=== PATIENT | female | born 1985 | race Asian ===

== ENCOUNTER 2018-01-11 23:44 | Observation (INO) | payer BC, OTHER ==
[~2018-01-11] VITALS: Ht 157.5 cm; Wt 58.0 kg
[2018-01-11] MEDS ORDERED: ALUMINUM/MAGNESIUM SUSP 30 ML UDC PO STA (23:54)
[2018-01-11] MEDS ORDERED: SODIUM CHLORIDE 0.9% 1000ML 1,000 ML IV STA (23:54)
[2018-01-11] MEDS ORDERED: LIDOCAINE HCL 2% VISC SOLN 20 ML UDC PO STA (23:54)
[2018-01-11] MEDS ORDERED: ONDANSETRON INJ 2 MG/ML 2 ML VIAL IV STA (23:54)
[2018-01-12] VITALS (9 sets, daily range): BP systolic 95–110; BP diastolic 60–74; PULSE 71–107; TEMP 36.2–37.2; O2SAT 97–100; Ht 157.5 cm; Wt 58.0 kg
[2018-01-12 00:21] LABS: BASO % 0.1 %; BASO ABS # 0.01 K/uL (0-0.2); EOS % 0.9 %; EOS ABS # 0.11 K/uL (0-0.5); HEMATOCRIT 40.1 % (37-47); HEMOGLOBIN 14.1 g/dL (12.0-16.0); IG# 0.03 K/uL (0.00-0.02); LYMPH % 22.8 %; LYMPH ABS # 2.77 K/uL (1.2-3.4); MEAN CELL VOLUME 90.3 fL (80-100); MEAN CORPUSCULAR HEMOGLOBIN 31.8 pg (25-34); MEAN CORPUSCULAR HGB CONC 35.2 g/dl (32-36); MEAN PLATELET VOLUME 9.1 fL (7.4-10.4); MONO % 6.2 %; MONO ABS # 0.75 K/uL (0.11-0.59); NEUT % 69.8 %; NEUT ABS # 8.46 K/uL (1.4-6.5); PLATELET COUNT 289 K/uL (130-400); RED CELL DISTRIBUTION WIDTH CV 12.3 % (11.5-14.5); RED CELL DISTRIBUTION WIDTH SD 40.2 fL (36.4-46.3); WHITE BLOOD COUNT 12.13 K/uL (4.8-10.8)
[2018-01-12] MEDS ORDERED: KETOROLAC TROMETHAMINE 30 MG/ML VIAL IV STA (00:30)
[2018-01-12 00:45] LABS: ALBUMIN 4.2 gm/dl (3.4-5.0); ALKALINE PHOSPHATASE 74 U/L (45-117); ALT/SGPT 25 U/L (12-78); AST/SGOT 21 U/L (15-37); BLOOD UREA NITROGEN 15 mg/dl (7-18); CARBON DIOXIDE 28 mmol/L (21-32); GLUCOSE 98 mg/dl (70-99); LIPASE 203 U/L (73-393); POTASSIUM 3.5 mmol/L (3.5-5.1); SODIUM 139 mmol/L (136-145); TOTAL PROTEIN 8.6 gm/dl (6.4-8.2)
[2018-01-12] MEDS ORDERED: MoRPHine SULFATE 4 MG/ML 1 ML CARP\\VIAL ONE (01:21)
[2018-01-12] MEDS ORDERED: MoRPHine SULFATE 4 MG/ML 1 ML CARP\\VIAL IV STA ×2 (01:23→04:22)
[2018-01-12] MEDS ORDERED: OPTIRAY 320 IV PRN (02:45)
[2018-01-12] MEDS ORDERED: CEFOXITIN SOD 1 GM VIAL IV STA (04:18)
[2018-01-12] MEDS ORDERED: SODIUM CHLORIDE 0.9% 1000ML 1,000 ML IV STA (04:22)
--- NOTE | 2018-01-12 04:37 | EMERGENCY ROOM VISIT NOTE ---
History First contact with patient: 23:51 Chief Complaint: ABDOMINAL PAIN Stated Complaint: UPPER ABDOMINAL PAIN Nursing Triage Summary: severe abdominal pain upper abdomen starting 1900, no diarrhea or vomiting History of Present Illness The patient is a 32 year old female who presents to the Emergency Room with complaints of mid epigastric pain throughout the day is gotten progressively worse described as discomfort, ranging in severity 8 out of 10. Nothing makes it better or worse. No correlation with eating. Patient states she has had H. pylori infection before but this feels different. She was retested again with family care doctor and was negative. No recent EGD. She still has her gallbladder. Patient denies chest pain, dyspnea, vomiting, diarrhea, back pain , urinary symptoms. Review of Systems An 10 system review of systems was completed with positives and pertinent negatives listed in the HPI. Past Medical/Surgical History Medical Problems: (1) Bilateral tubal ligation (2) Vaginal delivery Social History Smoking Status: Never Smoker Smokeless Tobacco Use: No Alcohol Use: none Drug Use: none Marital Status: Current/Historical Medications No Active Prescriptions or Reported Meds Physical Exam Vital Signs Date Time Temp Pulse Resp B/P (MAP) Pulse Ox O2 Delivery O2 Flow Rate FiO2 01/12/18 03:33 107/74 01/12/18 03:11 81 17 100 01/12/18 02:11 81 18 100 01/12/18 02:06 84 19 99 Room Air 01/12/18 01:36 93 18 99 01/12/18 01:31 102/70 01/12/18 01:29 90 19 99 01/12/18 01:14 74 19 100 01/12/18 01:01 114/79 01/12/18 00:59 79 19 100 Room Air 01/12/18 00:18 120/82 01/11/18 23:47 36.5 83 18 125/81 99 Room Air Physical Exam VITALS: Vitals are noted on the nurse's note and reviewed by myself. Vital signs stable. GENERAL: Pleasant female, in no acute distress, nondiaphoretic, well-developed well-nourished. SKIN: The skin was without rashes, erythema, edema, or bruising. There is no tenting of the skin. Capillary reflex less than 2 seconds. HEAD: Normocephalic atraumatic. EARS: External auditory canals clear EYES: Pupils equal round and reactive to light and accommodation. Conjunctivae without injection, sclerae without icterus. Extraocular movements intact. NOSE: Patent, turbinates without inflammation or discharge. MOUTH: Mucous membranes moist. Pharynx without erythema or exudate. Uvula midline. Airway patent. Tongue does not deviate. NECK: Supple without nuchal rigidity. No lymphadenopathy. No thyromegaly. Cervical spine is nontender. No JVD. HEART: Regular rate and rhythm without murmurs gallops or rubs. LUNGS: Clear to auscultation bilaterally without wheezes, rales or rhonchi. No retractions or accessory muscle use. ABDOMEN: Positive bowel sounds x 4. Normal tympanic percussion. Soft, tender to palpation epigastric region, without masses or organomegaly. No guarding or rebound tenderness. No CVA tenderness MUSCULOSKELETAL: No muscle atrophy, erythema, or edema noted. NEURO: Patient was alert and oriented to person place and time. Normal sensation to light and sharp touch. No focal neurological deficits. Medical Decision & Procedures Laboratory Results 01/12/18 00:10 Red Blood Count 4.44, Mean Corpuscular Volume 90.3, Mean Corpuscular Hemoglobin 31.8, Mean Corpuscular Hemoglobin Concent 35.2, Mean Platelet Volume 9.1, Neutrophils (%) (Auto) 69.8, Lymphocytes (%) (Auto) 22.8, Monocytes (%) (Auto) 6.2, Eosinophils (%) (Auto) 0.9, Basophils (%) (Auto) 0.1, Neutrophils # (Auto) 8.46, Lymphocytes # (Auto) 2.77, Monocytes # (Auto) 0.75, Eosinophils # (Auto) 0.11, Basophils # (Auto) 0.01 01/12/18 00:10 Test 01/12/18 00:10 01/12/18 00:15 White Blood Count 12.13 K/uL (4.8-10.8) Red Blood Count 4.44 M/uL (4.2-5.4) Hemoglobin 14.1 g/dL (12.0-16.0) Hematocrit 40.1 % (37-47) Mean Corpuscular Volume 90.3 fL (80-100) Mean Corpuscular Hemoglobin 31.8 pg (25-34) Mean Corpuscular Hemoglobin Concent 35.2 g/dl (32-36) Platelet Count 289 K/uL (130-400) Mean Platelet Volume 9.1 fL (7.4-10.4) Neutrophils (%) (Auto) 69.8 % Lymphocytes (%) (Auto) 22.8 % Monocytes (%) (Auto) 6.2 % Eosinophils (%) (Auto) 0.9 % Basophils (%) (Auto) 0.1 % Neutrophils # (Auto) 8.46 K/uL (1.4-6.5) Lymphocytes # (Auto) 2.77 K/uL (1.2-3.4) Monocytes # (Auto) 0.75 K/uL (0.11-0.59) Eosinophils # (Auto) 0.11 K/uL (0-0.5) Basophils # (Auto) 0.01 K/uL (0-0.2) RDW Standard Deviation 40.2 fL (36.4-46.3) RDW Coefficient of Variation 12.3 % (11.5-14.5) Immature Granulocyte % (Auto) 0.2 % Immature Granulocyte # (Auto) 0.03 K/uL (0.00-0.02) Anion Gap 6.0 mmol/L (3-11) Est Creatinine Clear Calc Drug Dose 71.0 ml/min Estimated GFR () 98.1 Estimated GFR (Non- 84.6 BUN/Creatinine Ratio 16.1 (10-20) Calcium Level 9.0 mg/dl (8.5-10.1) Total Bilirubin 0.4 mg/dl (0.2-1) Direct Bilirubin < 0.1 mg/dl (0-0.2) Aspartate Amino Transf (AST/SGOT) 21 U/L (15-37) Alanine Aminotransferase (ALT/SGPT) 25 U/L (12-78) Alkaline Phosphatase 74 U/L (45-117) Total Protein 8.6 gm/dl (6.4-8.2) Albumin 4.2 gm/dl (3.4-5.0) Lipase 203 U/L (73-393) Urine Color YELLOW Urine Appearance CLEAR (CLEAR) Urine pH 5.0 (4.5-7.5) Urine Specific [place] 1.022 (1.000-1.030) Urine Protein NEG (NEG) Urine Glucose (UA) NEG (NEG) Urine Ketones NEG (NEG) Urine Occult Blood 1+ (NEG) Urine Nitrite NEG (NEG) Urine Bilirubin NEG (NEG) Urine Urobilinogen NEG (NEG) Urine Leukocyte Esterase MODERATE (NEG) Urine WBC (Auto) 10-30 /hpf (0-5) Urine RBC (Auto) 0-4 /hpf (0-4) Urine Hyaline Casts (Auto) 1-5 /lpf (0-5) Urine Epithelial Cells (Auto) 20-30 /lpf (0-5) Urine Bacteria (Auto) NEG (NEG) Urine Test NEG (NEG) Medications Administered Medications (Trade) Dose Ordered Sig/Yoni Route Start Time Stop Time Status Last Admin Dose Admin Lidocaine HCl (Viscous Lidocaine 2% Soln) 10 ml NOW STAT PO 01/11/18 23:54 01/11/18 23:56 DC 01/12/18 00:09 10 ML Al Hydroxide/Mg Hydroxide (Maalox Susp) 30 ml NOW STAT PO 01/11/18 23:54 01/11/18 23:56 DC 01/12/18 00:08 30 ML Ondansetron HCl (Zofran Inj) 4 mg NOW STAT IV 01/11/18 23:54 01/11/18 23:57 DC 01/12/18 00:13 4 MG Sodium Chloride 1,000 ml @ 999 mls/hr Q1H1M STAT IV 01/11/18 23:54 01/12/18 00:54 DC 01/12/18 00:11 999 MLS/HR Ketorolac Tromethamine (Toradol Inj) 10 mg NOW STAT IV 01/12/18 00:30 01/12/18 00:32 DC 01/12/18 00:52 10 MG Morphine Sulfate (MoRPHine SULFATE INJ) 4 mg NOW STAT IV 01/12/18 01:23 01/12/18 01:24 DC 01/12/18 01:25 4 MG ED Course Prior records/ancillary studies reviewed. Triage Nursing notes reviewed. Additional history obtained from family The patient's history was concerning for abdominal pain. Differential diagnosis: Etiologies such as appendicitis, diverticulitis, PUD, biliary pathology, UTI, pancreatitis, obstruction, mesenteric ischemia, aortic pathology, infections, inflammatory bowel disease, renal colic, as well as others were entertained. Physical examination findings: As above. ER treatment provided: GI cocktail, toradol, zofran, morphine, NSS On reassessment the patient felt better. Diagnostics interpreted by me: The labs revealed mild leukocytosis. Negative hCG Imaging studies: CT ABDOMEN & PELVIS With Contrast: The appendix measures up to 10 mm in maximum diameter. There is associated mural enhancement, adjacent fat stranding and appendicolith compatible with early mild acute appendicitis. No evidence of significant wall thickening or adjacent fluid. No evidence of extraluminal gas to suggest bowel perforation. No evidence of abscess formation. Radiologist: Lay Robbins MD US RUQ: Normal pancreas. Normal liver. Gallbladder adenomyomatosis. No cholelithiasis or cholecystitis. No biliary dilatation. Normal right kidney. Radiologist: Lay Robbins MD Consultation: A consultation was placed with the surgeon, GILBERTO Ramos. The case was discussed and diagnostics were reviewed. The patient was evaluated in the ER for further treatment. Exam and history seem consistent with appendicitis. Patient will be evaluated by surgery. She was afebrile and nontoxic. She was hydrated as above. Her symptoms progressed so further imaging was ordered. She became tender in the right lower quadrant to CT was ordered. This is concerning for appendicitis. Surgery was consult. Patient and family are agreeable treatment plan.By the evaluation outlined above emergent etiologies such as diverticulitis, PUD, biliary pathology, UTI, pancreatitis, obstruction, mesenteric ischemia, aortic pathology, inflammatory bowel disease, renal colic, as well as others were deemed relatively unlikely. The pt informed about the findings as listed above. All questions were answered and pleased with the treatment. Case reviewed with my attending The chart was completed utilizing [employer] Speech voice recognition software. Grammatical errors, random word insertions, pronoun errors, and incomplete sentences are an occassional consequence of this system due to software limitations, ambient noise, and hardware issues. Any formal questions or concerns about the content, text, or information contained within the body of this dictation should be directly addressed to the physician health assistant for clarification. Medical Decision As above Medication Reconcilliation Current Medication List: was personally reviewed by me Blood Pressure Screening Patient's blood pressure: Normal blood pressure Impression Primary Impression: Appendicitis Departure Information Dispostion Being Evaluated By Surgeon Condition GOOD Prescriptions No Active Prescriptions or Reported Meds Referrals Giovany Snyder M.D. ([facility]) (PCP) Patient Instructions My [facility] Problem Qualifiers Primary Impression: Appendicitis Appendicitis type: acute appendicitis Acute appendicitis type: with localized peritonitis Qualified Codes: K35.3 - Acute appendicitis with localized peritonitis
[2018-01-12] MEDS ORDERED: ONDANSETRON INJ 2 MG/ML 2 ML VIAL IV PRN ×3 (05:15→12:15)
[2018-01-12] MEDS ORDERED: HYDROmorphone INJ 0.5 MG/0.5 ML SYR IV PRN (05:15)
[2018-01-12] MEDS ORDERED: ACETAMINOPHEN IV 100 ML IV PRN (05:15)
[2018-01-12] MEDS ORDERED: HYDROmorphone INJ 1 MG/ML SYR IV PRN (05:15)
--- NOTE | 2018-01-12 05:26 | Surgery Consultation ---
Consultation Date of Consultation: Jan 12, 2018. Attending Physician: Reason for Consultation: acute appendicitis History of Present Illness Patient is a 32F with PMH H.pylori who presents to the ED with epigastric abdominal pain which has gotten worse throughout the day. Now she feels her RLQ is very tender as well. She originally thought her pain was due to her H. pylori which was diagnosed by endoscopy approximately 2 years ago at [facility]. Reports she woke up with sweats last night but denies any fever or chills. Denies nausea or vomiting. She has been moving her bowels without issue. She has had some trouble urinating since the onset of symptoms (feels its harder to push things out). She last ate yesterday late afternoon. PSHx significant for tubal ligation. Denies use of blood thinning or anticoagulant medications. Denies problems with anesthesia in the past. Unsure of FHx of appendicitis. 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 WBC 12.13. CT shows a 10m dilated appendix, associated mural enhancement, adjacent fat stranding and appendicolith. Findings compatible with early mild acute appendicitis. Past Medical/Surgical History Medical Problems: (1) Appendicitis Status: Acute Social History Smoking Status: Never Smoker Smokeless Tobacco Use: No Drug Use: none Marital Status: Allergies Coded Allergies: No Known Allergies (Unverified , 08/06/14) Home Medications No Active Prescriptions or Reported Meds Current Inpatient Medications Current Inpatient Medications Medications (Trade) Dose Ordered Sig/Yoni Route Start Time Stop Time Status Last Admin Dose Admin Ioversol (Optiray 320) 125 ml UD PRN IV 01/12/18 02:45 01/16/18 02:44 Sodium Chloride 1,000 ml @ 125 mls/hr Q8H STAT IV 01/12/18 04:22 01/12/18 12:21 01/12/18 04:50 125 MLS/HR Sodium Chloride 1,000 ml @ 100 mls/hr Q10H IV 01/12/18 05:15 02/11/18 05:14 UNV Hydromorphone HCl (Dilaudid Inj) 0.5 mg Q3HWA PRN IV 01/12/18 05:15 01/26/18 05:14 UNV Hydromorphone HCl (Dilaudid Inj) 1 mg Q3HWA PRN IV 01/12/18 05:15 01/26/18 05:14 UNV Acetaminophen 100 ml @ 400 mls/hr Q8H PRN IV 01/12/18 05:15 02/11/18 05:14 Ondansetron HCl (Zofran Inj) 4 mg Q6H PRN IV 01/12/18 05:15 02/11/18 05:14 UNV Review of Systems Constitutional: + sweats, No fever, No chills Respiratory: No shortness of breath Cardiovascular: No chest pain Abdomen: + pain (Epigastric, RLQ), No nausea, No vomiting, No diarrhea, No constipation Genitourinary - Female: + urinary retention, No dysuria, No hematuria Integumentary: No new/changing skin lesions, No color change Physical Exam Date Time Temp Pulse Resp B/P (MAP) Pulse Ox O2 Delivery O2 Flow Rate FiO2 01/12/18 03:33 107/74 01/12/18 03:11 81 17 100 01/12/18 02:11 81 18 100 01/12/18 02:06 84 19 99 Room Air 01/12/18 01:36 93 18 99 01/12/18 01:31 102/70 01/12/18 01:29 90 19 99 01/12/18 01:14 74 19 100 01/12/18 01:01 114/79 01/12/18 00:59 79 19 100 Room Air 01/12/18 00:18 120/82 01/11/18 23:47 36.5 83 18 125/81 99 Room Air General Appearance: WD/WN, no apparent distress Head: normocephalic, atraumatic ENT: hearing grossly normal Respiratory/Chest: lungs clear, no respiratory distress, no accessory muscle use Cardiovascular: regular rate, rhythm, no gallop, no murmur Abdomen/GI: soft, no organomegaly, no pulsatile mass, + tenderness (Moderate RLQ TTP, no rebound or guarding, Epigastric TTP mild) Neurologic/Psych: alert, normal mood/affect, oriented x 3 Skin: normal color, warm/dry Laboratory Results Last 24 Hours Test 01/12/18 00:10 01/12/18 00:15 White Blood Count 12.13 K/uL Red Blood Count 4.44 M/uL Hemoglobin 14.1 g/dL Hematocrit 40.1 % Mean Corpuscular Volume 90.3 fL Mean Corpuscular Hemoglobin 31.8 pg Mean Corpuscular Hemoglobin Concent 35.2 g/dl Platelet Count 289 K/uL Mean Platelet Volume 9.1 fL Neutrophils (%) (Auto) 69.8 % Lymphocytes (%) (Auto) 22.8 % Monocytes (%) (Auto) 6.2 % Eosinophils (%) (Auto) 0.9 % Basophils (%) (Auto) 0.1 % Neutrophils # (Auto) 8.46 K/uL Lymphocytes # (Auto) 2.77 K/uL Monocytes # (Auto) 0.75 K/uL Eosinophils # (Auto) 0.11 K/uL Basophils # (Auto) 0.01 K/uL RDW Standard Deviation 40.2 fL RDW Coefficient of Variation 12.3 % Immature Granulocyte % (Auto) 0.2 % Immature Granulocyte # (Auto) 0.03 K/uL Sodium Level 139 mmol/L Potassium Level 3.5 mmol/L Chloride Level 105 mmol/L Carbon Dioxide Level 28 mmol/L Anion Gap 6.0 mmol/L Blood Urea Nitrogen 15 mg/dl Creatinine 0.90 mg/dl Est Creatinine Clear Calc Drug Dose 71.0 ml/min Estimated GFR () 98.1 Estimated GFR (Non- 84.6 BUN/Creatinine Ratio 16.1 Random Glucose 98 mg/dl Calcium Level 9.0 mg/dl Total Bilirubin 0.4 mg/dl Direct Bilirubin < 0.1 mg/dl Aspartate Amino Transf (AST/SGOT) 21 U/L Alanine Aminotransferase (ALT/SGPT) 25 U/L Alkaline Phosphatase 74 U/L Total Protein 8.6 gm/dl Albumin 4.2 gm/dl Lipase 203 U/L Urine Color YELLOW Urine Appearance CLEAR Urine pH 5.0 Urine Specific [place] 1.022 Urine Protein NEG Urine Glucose (UA) NEG Urine Ketones NEG Urine Occult Blood 1+ Urine Nitrite NEG Urine Bilirubin NEG Urine Urobilinogen NEG Urine Leukocyte Esterase MODERATE Urine WBC (Auto) 10-30 /hpf Urine RBC (Auto) 0-4 /hpf Urine Hyaline Casts (Auto) 1-5 /lpf Urine Epithelial Cells (Auto) 20-30 /lpf Urine Bacteria (Auto) NEG Urine Test NEG Assessment & Plan Early acute appendicitis Abdomen soft, non-distended, TTP in RLQ and epigastric regions. no N/V at this time. She has been urinating but feels it is harder to push out. Plan of laparoscopic appendectomy, possible open with Dr. Atwood in the OR today. Risks, benefits, alternatives to the procedure were discussed - questions answered. Admit med/surg (obs), NPO, IVF, IV Mefoxin 1g Q6H, pain medication prn, anti- emetics prn, SCDs. OR notified. Please contact with questions or concerns.
[2018-01-12] MEDS ORDERED: IV FLUIDS COMPLETED PRN (05:30)
[2018-01-12] MEDS ORDERED: SODIUM CHLORIDE 0.9% INJ 10 ML VIAL ONE (06:02)
--- NOTE | 2018-01-12 06:43 | DIAGNOSTIC IMAGING REPORT ---
GALLBLADDER-ABD LIMITED CLINICAL HISTORY: Right upper quadrant abdominal pain COMPARISON STUDY: No previous studies for comparison. FINDINGS: The pancreas appears normal as visualized. No hepatic masses are visualized. No gallstones are visualized. There is a comet tail artifact consistent with adenomyomatosis. There is no ductal dilatation. The common bile duct measured 4 mm. There is no right-sided hydronephrosis. IMPRESSION: 1. Ultrasonographically normal liver and pancreas 2. No ductal dilatation 3. Gallbladder adenomyomatosis Electronically signed by: Boubacar Johnson M.D. 01/12/2018 6:42 AM Dictated Date/Time: 01/12/2018 6:40 AM
[2018-01-12] MEDS ORDERED: SODIUM CHLORIDE 0.9% 1000ML 1,000 ML IV SCH (06:45)
[2018-01-12] MEDS ORDERED: BUPIVACAINE/EPINEPHRINE 0.5% MPF 1:200,000 30 ML VIAL ONE (06:49)
--- NOTE | 2018-01-12 07:39 | DIAGNOSTIC IMAGING REPORT ---
CT ABD/PELVIS IV CONTRAST ONLY CLINICAL HISTORY: Right-sided abdominal pain COMPARISON STUDY: None. TECHNIQUE: Following the IV administration of 94 mL of Optiray-320, CT scan of the abdomen and pelvis was performed from the lung bases to the proximal femurs. Images are reviewed in the axial, sagittal, and coronal planes. IV contrast was administered without complication. A dose lowering technique was utilized adhering to the principles of ALARA. CT DOSE: 288.00 mGy.cm FINDINGS: Lower chest: The heart is normal in size and configuration, without pericardial effusion. The lung bases and pleural spaces are clear. Liver: The contrast-enhanced liver is normal in size, contour, and attenuation. There is no intrahepatic biliary ductal dilatation. The hepatic veins and portal veins are patent. Gallbladder: Unremarkable. Spleen: Normal in size and attenuation. Pancreas: Unremarkable. Adrenal glands: Unremarkable. Kidneys: There is symmetric renal cortical enhancement. The kidneys are normal in size without hydronephrosis. Bowel: There are no transition zones indicate bowel obstruction. There is no acute diverticulitis. There is a dilated appendix containing an appendicolith. The appendix measures 10 mm in diameter. The findings are indicative of acute appendicitis Peritoneum: There is no intraperitoneal free air or abdominal ascites. Vasculature: The abdominal aorta is normal in course and caliber. Adenopathy: None. Pelvic viscera: The bladder, and pelvic viscera are unremarkable. Skeletal structures: No destructive osseous lesions are seen. IMPRESSION: 1. Dilated fluid-filled appendix containing an appendicolith. The findings are indicative of acute appendicitis Electronically signed by: Boubacar Johnson M.D. 01/12/2018 7:38 AM Dictated Date/Time: 01/12/2018 7:35 AM
[2018-01-12] MEDS ORDERED: FENTANYL CITRATE INJ 50 MCG/1 ML 2 ML VIAL IV PRN (10:00)
[2018-01-12] MEDS ORDERED: ATROPINE SULFATE 0.1 MG/ML 5ML SYR IV PRN (10:00)
[2018-01-12] MEDS ORDERED: EpHEDrine SULFATE INJ 50 MG/ML AMP IV PRN (10:00)
--- NOTE | 2018-01-12 10:53 | History & Physical Bridge Note ---
H&P Re-Evaluation Bridge Note: I have examined the patient, reviewed the History & Physical and in the interval since the performance of the History & Physical I have noted the following changes of clinical significance: No changes noted. pt seen. discussed findings/options/risks ( bleeding/infection/leaks/blood clots/injury to other organs etc...). questions answered. ok to proceed .
[2018-01-12] MEDS ORDERED: KETOROLAC TROMETHAMINE 30 MG/ML VIAL ONE (11:13)
[2018-01-12] MEDS ORDERED: ROCURONIUM BROMIDE 10 MG/ML 5 ML VIAL ONE (11:13)
[2018-01-12] MEDS ORDERED: MIDAZOLAM HCL 1 MG/ML 2ML VIAL ONE (11:13)
[2018-01-12] MEDS ORDERED: DEXAMETHASONE SOD INJ 4 MG/ML VIAL ONE (11:13)
[2018-01-12] MEDS ORDERED: PROPOFOL IV EMULSION 10 MG/ML 20 ML VIAL ONE (11:13)
[2018-01-12] MEDS ORDERED: FENTANYL CITRATE INJ 50 MCG/1 ML 2 ML VIAL ONE (11:13)
[2018-01-12] MEDS ORDERED: ONDANSETRON INJ 2 MG/ML 2 ML VIAL ONE (11:13)
[2018-01-12] MEDS ORDERED: LIDOCAINE HCL 2% 2 ML VIAL (20MG/ML) ONE (11:13)
[2018-01-12] MEDS ORDERED: NEOSTIGMINE METHYLSULFATE 5 MG/5 ML SYR ONE (11:49)
[2018-01-12] MEDS ORDERED: GLYCOPYRROLATE INJ 0.2 MG/ML VIAL ONE (11:49)
--- NOTE | 2018-01-12 11:59 | [facility] Operative Report ---
Operative Report Operative Date Jan 12, 2018. Pre-Operative Diagnosis Acute Appendicitis Post-Operative Diagnosis Same as preop Procedure(s) Performed Laparoscopic Appendectomy Surgeon Dr. Atwood Route Relief Driver Surgeon(s) Hope Mckeon PA-C Estimated Blood Loss 5 ml Specimens A. Appendix Anesthesia Type General Complication(s) none Description of Procedure After informed consent was obtained the patient was taken to the operating room and placed in supine position. After successful intubation a Solorzano catheter was placed and the left arm was tucked. A Solorzano catheter was inserted sterilely. I began by making a periumbilical incision with an 11 blade scalpel and carried this down through the soft tissue using electrocautery. The anterior rectus fascia was opened using electrocautery and 2 #0 Vicryl stay sutures were placed. The peritoneum was elevated using hemostats and incised under direct vision using a Metzenbaum scissor. A finger sweep was performed. A 12 mm Bearden trocar was placed and the abdomen was insufflated to 18 mmHg. A laparoscope was inserted and the abdomen was examined in 360. A suprapubic 5 mm port and a left lower quadrant 12 mm port were placed under direct vision. The patient was air planed to the left as well as placed in a slight Trendelenburg position. We began by looking in the right lower quadrant. We were able to readily identify the appendix and it was grossly inflamed. It had not perforated. There is a small amount of fluid in the right lower quadrant and the pelvis. We immediately irrigated and suctioned this out. I was able to use primarily blunt dissection to pull the appendix away from the right lower quadrant sidewall. I was then able to use 2 firings of a JULIA brown cartridge stapler to transect both the mesentery of the appendix as well as the appendix itself at its base with the cecum after creating a small window in the mesoappendix. It was then placed into an Endo Catch bag and removed from the camera port site. We thoroughly irrigated the right lower quadrant as well as the pelvis. There was adequate hemostasis. I ran the small bowel backwards from the terminal ileum for about 6 feet all of which was normal. All the peritoneal surfaces were normal. Small/ large bowel, liver, stomach etc. all appeared grossly normal. We did a final irrigation and then removed all the trochars and desufflated the abdomen. The fascia of the camera port as well as the left lower quadrant were closed using 0 Vicryl in [id number] fashion. Wounds were all irrigated and closed using 4-0 Monocryl. Marcaine was injected around them for postoperative analgesia and skin glue used as a dressing. The patient was awakened extubated and transferred to recovery in stable condition. My physician's first assistant was present through the entire case. She assisted with prepping the patient and helped with exposure for port placement, helped run the camera and helped with fascial/wound closure at the end of the procedure as well as dressing placement. I attest to the content of the Intraoperative Record and any orders documented therein. Any exceptions are noted below. I attest to the content of the Intraoperative Record and any orders documented therein. Any exceptions are noted below.
[2018-01-12] MEDS ORDERED: CEFOXITIN IV 1,000 MG in DEXTROSE 5% 50ML 50 ML IV SCH (12:00)
[2018-01-12] MEDS ORDERED: MoRPHine SULFATE 4 MG/ML 1 ML CARP\\VIAL IV PRN ×3 (12:15)
[2018-01-12] MEDS ORDERED: HYDR-5688 PO (12:15)
[2018-01-12] MEDS ORDERED: HYDROCODONE/ACETAMIN 5/325MG TAB PO PRN ×2 (12:15)
--- NOTE | 2018-01-12 12:15 | Discharge Instructions ---
Discharge Instructions Date of Service Jan 12, 2018. Admission Reason for Admission: Appendicitis Discharge Discharge Diagnosis / Problem: Appendicitis Discharge Goals Goal(s): Decrease discomfort, Improve function Activity Recommendations Activity Limitations: as noted below Lifting Limitations: no more than 10 pounds Exercise/Sports Limitations: until after follow-up appointment May Resume Sexual Activity: after follow-up appointment Shower/Bathe: tomorrow Driving or Machine Use: resume 1 day after discharge . Instructions / Follow-Up Instructions / Follow-Up You have surgical glue over your incisions. Please do not soak or scrub your incisions. You may shower tomorrow, 01/13/2018. Please follow-up with Dr. Atwood in the General Surgery Clinic located at [address] [place], [place] [address] [address] in 1-2 weeks. Please call the clinic at [phone] to make this appointment. Please call the General Surgery Clinic with any questions or concerns at [phone]. Current Hospital Diet Patient's current hospital diet: Clear Liquid Diet Discharge Diet Recommended Diet: Regular Diet Procedures Procedures Performed: Laparoscopic Appendectomy Pending Studies Studies pending at discharge: yes List of pending studies: Pathology report. Medical Emergencies . Who to Call and When: Medical Emergencies: If at any time you feel your situation is an emergency, please call 201 immediately. . Non-Emergent Contact Non-Emergency issues call your: Primary Care Provider, Surgeon Call Non-Emergent contact if: temperature is above 101.5, your pain is not controlled, wound has increased drainage, wound has increased redness . "Provider Documentation" section prepared by Hope Mckeon. .
--- NOTE | 2018-01-12 12:27 | Anesthesiology Progress Note ---
Anesthesia Post Op Note Date & Time Jan 12, 2018 at 12:27 Vital Signs Pain Intensity: 0 Vital Signs Past 12 Hours Date Time Temp Pulse Resp B/P (MAP) Pulse Ox O2 Delivery O2 Flow Rate FiO2 01/12/18 12:10 36.7 96 14 108/42 99 Nasal Cannula 2 01/12/18 07:50 Room Air 01/12/18 07:20 36.5 73 16 101/67 (78) 98 Room Air 01/12/18 06:33 37.2 71 16 110/73 (85) 98 Room Air 01/12/18 06:18 85 21 99 01/12/18 06:13 66 19 100 01/12/18 06:01 111/70 01/12/18 05:43 77 14 100 01/12/18 05:31 105/74 01/12/18 05:13 85 14 99 01/12/18 05:08 87 17 100 Room Air 01/12/18 05:01 111/80 01/12/18 04:38 77 19 100 01/12/18 04:31 116/81 01/12/18 04:08 79 16 100 01/12/18 04:01 112/72 01/12/18 03:38 83 18 100 01/12/18 03:33 107/74 01/12/18 03:11 81 17 100 01/12/18 02:11 81 18 100 01/12/18 02:06 84 19 99 Room Air 01/12/18 01:36 93 18 99 01/12/18 01:31 102/70 01/12/18 01:29 90 19 99 01/12/18 01:14 74 19 100 01/12/18 01:01 114/79 01/12/18 00:59 79 19 100 Room Air Notes Mental Status: alert / awake / arousable, participated in evaluation Pt Amnestic to Procedure: Yes Nausea / Vomiting: adequately controlled Pain: adequately controlled Airway Patency, RR, SpO2: stable & adequate BP & HR: stable & adequate Hydration State: stable & adequate Anesthetic Complications: no major complications apparent
--- NOTE | 2018-01-16 14:36 | Discharge Summary ---
Discharge Summary Date of Service Jan 16, 2018. Admission Date/Reason Jan 12, 2018 at 05:07 Appendicitis. Discharge Date/Disposition Jan 12, 2018 Home Diagnosis Principal Diagnosis: Appendicitis Admission Physical Exam As per Admitting History & Physical. Hospital Course Patient is a 32-year-old female with PMH H.pylori who presented to the ED with epigastric abdominal pain which had progressively become worse throughout the day. She originally thought her pain was due to her H. pylori which was diagnosed by endoscopy approximately 2 years ago at [facility]. She denied any fever or chills. Denied nausea or vomiting. She had been moving her bowels without issue. PSHx significant for tubal ligation. Denies use of blood thinning or anticoagulant medications. ED course: WBC 12.13. CT shows a 10m dilated appendix, associated mural enhancement, adjacent fat stranding and appendicolith. Findings compatible with early mild acute appendicitis. Recommendation: Laparoscopic Appendectomy, Possible Open with Dr. Atwood in main OR. Risks of surgery were reviewed with patient. Patient was taken to OR for Laparoscopic. Pre-Op Diagnosis- Acute Appendicitis Post-Op Diagnosis- Same as pre-op Post-operatively, patient was transferred back to Med/Surg floor for observation. Patient was evaluated later in the day- pain controlled, tolerated regular diet, voided on own without difficulty. Patient deemed ok for discharge to home. Return precautions reviewed. Patient to follow-up in [facility] in 1-2 weeks after discharge. Discharge Instructions Please refer to the electronic Patient Visit Report (Discharge Instructions) for additional information.
== END 2018-01-12 15:55 | disposition home or self-care (01) ==
LOC: C.EDB 23:45 → C.MSN 01-12 05:07 → ENRESERV 01-12 05:28
PROVIDERS: ADMIT Surgery; ATTEND Surgery
DX: K35.80 Unspecified acute appendicitis (principal)